=== PATIENT | female | born 1970 | race Caucasian/White ===

== ENCOUNTER 2023-02-22 15:27 | Emergency (ER) | payer OTHER | END 2023-02-22 18:05 | disposition home or self-care (01) | LOC: CSHERS 15:27 | DX: M79.641 Pain in right hand (principal); M25.531 Pain in right wrist; E11.9 Type 2 diabetes mellitus without complications; I10 Essential (primary) hypertension ==

== ENCOUNTER 2023-06-01 18:15 | Emergency (ER) | payer OTHER, MEDICAID ==
[2023-06-01] MEDS ORDERED: methylPREDNISolone Sod Succ/PF 125 MG/2 ML VIAL ONE (18:35)
[2023-06-01] MEDS ORDERED: diphenhydrAMINE 50 MG/ML VIAL ONE (18:35)
[2023-06-01] MEDS ORDERED: Ketorolac Tromethamine 30 MG/ML VIAL ONE (18:36)
[2023-06-01] MEDS ORDERED: Metoclopramide HCl 10 MG/2 ML VIAL ONE ×2 (18:36→20:48)
[2023-06-01 18:59] LABS: ALT (SGPT) 114 U/L (8-55); AST (SGOT) 153 U/L (5-34); Albumin 4.3 g/dL (3.5-5.0); Alkaline Phosphatase 111 U/L (40-110); Anion Gap 12 mmol/L (10-20); BUN (Urea Nitrogen) 7 mg/dL (9.8-20.1); Bilirubin, Total 0.4 mg/dL (0.2-1.2); Calc. Creatinine Clearance 0 mL/min (70-130); Calcium 9.8 mg/dL (7.8-10.44); Carbon Dioxide 31 mmol/L (22-29); Chloride 102 mmol/L (98-107); Estimated GFR 101; Globulin 3.8 g/dL (2.4-3.5); Glucose 110 mg/dL (70-105); Potassium 4.5 mmol/L (3.5-5.1); Protein, Total 8.1 g/dL (6.0-8.3); Sodium 140 mmol/L (136-145)
[2023-06-01 19:32] LABS: #Basophils 0.1 10x3/uL (0.0-0.2); #Eosinphils 0.1 10x3/uL (0.0-0.5); #Monocytes 0.8 10x3/uL (0.0-1.1); #Neutrophils 5.1 10x3/uL (1.5-8.4); %Basophils 0.5 % (0.0-2.0); %Eosinophils 1.1 % (0.0-6.0); %Lymphocytes 36.8 % (18.0-47.0); %Monocytes 8.3 % (0.0-10.0); %Neutrophils 52.8 % (40.0-75.0); Hemoglobin 14.1 g/dL (12.0-15.5); Mean Corpuscular HGB CONC 34.1 g/dL (32.0-36.0); Mean Corpuscular Hemoglobin 30.9 pg (27.0-33.0); Mean Corpuscular Volume 90.8 fl (81.6-98.3); Mean Platelet Volume 10.9 fl (7.4-10.4); Platelet Count 222 10x3/uL (150-450); RBC Distribution Width 12.1 % (11.5-14.5); Red Blood Cell (RBC) Count 4.56 10x6/uL (3.90-5.03); White Blood Cell (WBC) Count 9.6 10x3/uL (3.5-10.5)
[2023-06-01] MEDS ORDERED: HYDROcodone/Acetaminophen 5/325 mg Tablet ONE (19:41)
[2023-06-01] MEDS ORDERED: Magnesium 2 GM/50 ML BAG (IN WATER) ONE (20:01)
== END 2023-06-01 21:55 | disposition home or self-care (01) ==
LOC: CSHERS 18:15
DX: R51.9 Headache, unspecified (principal); E11.9 Type 2 diabetes mellitus without complications; I10 Essential (primary) hypertension; F17.290 Nicotine dependence, other tobacco product, uncomplicated; Z79.899 Other long term (current) drug therapy
CPT/HCPCS: 36415; 70450; 72125; 80053; 85025; 85652; 86140; 96365; 96366; 96367; 96375; J1200; J1885; J2765; J2930; J3475

== ENCOUNTER 2024-09-02 16:44 | Emergency (ER) | payer OTHER, MEDICAID ==
[2024-09-02] MEDS ORDERED: Ondansetron ODT 4 MG TAB ONE ×2 (17:43→18:20)
[2024-09-02] MEDS ORDERED: HYDROcodone/Acetaminophen 5/325 mg Tablet ONE (17:43)
[2024-09-02] MEDS ORDERED: Morphine 10 MG/ML VIAL ONE (18:19)
[2024-09-02] MEDS ORDERED: Lorazepam 2 MG/ML VIAL ONE (18:20)
[2024-09-02] MEDS ORDERED: chlordiazePOXIDE HCl 5 MG CAP PO SCH (18:30)
== END 2024-09-02 18:54 | disposition home or self-care (01) ==
LOC: CSHERS 16:44
DX: M54.50 Low back pain, unspecified (principal); I10 Essential (primary) hypertension; E11.40 Type 2 diabetes mellitus with diabetic neuropathy, unspecified; F17.290 Nicotine dependence, other tobacco product, uncomplicated; Z79.899 Other long term (current) drug therapy
CPT/HCPCS: J2060; J2270; Q0162; 96372; 99283